=== PATIENT | male | born 1995 | race Caucasian/White ===

== ENCOUNTER 2019-05-22 13:34 | Emergency (ER) | payer SELFPAY ==
[2019-05-22] MEDS ORDERED: DIPH/PERTUSS(ACELL)/TETANUS VAC/PF 0.5 ML SYR (>=10YO) IM ONE (15:07)
[2019-05-22] MEDS ORDERED: LIDOCAINE 1% INJ-PF (10 MG/ML) 30 ML SDV INJ ONE (15:07)
--- NOTE | 2019-05-22 15:10 | ER Document Report ---
ED Medical Screen (RME) - General Chief Complaint: Laceration Stated Complaint: RIGHT HAND LACERACTION Time Seen by Provider: 05/22/19 15:05 TRAVEL OUTSIDE OF THE [place] IN LAST 30 DAYS: No - HPI Notes: 05/22/19 15:08 Patient is a 23-year-old male no past medical history who presents complaining of laceration to right & with a glass 14 hours ago. Patient states that he does not want to affected. He believes that he may need sutures placed. He is able to move his hand without any difficulties. Denies drug allergies. Unknown last tetanus. Denies VILLELA, fever, neck pain, URI, CP, SOB, Abd pain, dysuria, back pain, or rash. I have treated and performed a rapid initial assessment of this patient. A comprehensive ED assessment and evaluation of the patient, analysis of test results and completion of medical decision making process will be conducted by additional ED providers. PHYSICAL EXAMINATION: GENERAL: Well-appearing, well-nourished and in no acute distress. A&Ox4. Answers questions appropriately. Rt hand: several excoriations noted with dried blood. + irregular superficial appearing 1.5cm laceration noted to medial hand. N/V intact distal. No bony tenderness. FROM. Strength 5+/5. - Related Data Allergies/Adverse Reactions: No Known Allergies Allergy (Verified 05/22/19 13:35) Past Medical History - Social History Chew tobacco use (# tins/day): No Frequency of alcohol use: Social Drug Abuse: None Renal/ Medical History: Denies: Hx Peritoneal Dialysis Physical Exam - Vital signs Vitals: Temp Pulse Resp BP Pulse Ox 98.9 F 91 18 147/61 H 95 05/22/19 13:41 05/22/19 13:41 05/22/19 13:41 05/22/19 13:41 05/22/19 13:41 Course - Vital Signs Vital signs: Temp Pulse Resp BP Pulse Ox 98.9 F 91 18 147/61 H 95 05/22/19 13:41 05/22/19 13:41 05/22/19 13:41 05/22/19 13:41 05/22/19 13:41
--- NOTE | 2019-05-22 15:55 | RADIOLOGY REPORT (SQ) ---
EXAM DESCRIPTION: HAND RIGHT 3 VIEWS COMPLETED DATE/TIME: 05/22/2019 3:43 pm REASON FOR STUDY: medial lac s/p hand through glass COMPARISON: None. EXAM PARAMETERS: NUMBER OF VIEWS: Three views. TECHNIQUE: AP, lateral and oblique radiographic images acquired of the right hand. LIMITATIONS: None. FINDINGS: MINERALIZATION: Normal. BONES: No acute fracture or dislocation. No worrisome bone lesions. JOINTS: No effusions. SOFT TISSUES: No soft tissue swelling. No foreign body. OTHER: No other significant finding. IMPRESSION: NEGATIVE STUDY OF THE RIGHT HAND. NO RADIOGRAPHIC EVIDENCE OF ACUTE INJURY. TECHNICAL DOCUMENTATION: JOB ID: [id number] [employer]- All Rights Reserved Reading location - IP/workstation name: [email or web address]
[2019-05-22] MEDS ORDERED: AMOXICILLIN TR/POT CLAVULANATE 500-125 MG TAB PO ONE (16:53)
[2019-05-22] MEDS ORDERED: AMOXICILLIN TRIHYD 250 MG CAPSULE PO ONE (16:53)
[2019-05-22] MEDS ORDERED: IBUPROFEN 800 MG TABLET PO ONE (16:54)
--- NOTE | 2019-05-22 17:57 | ER Document Report ---
HPI - HPI Patient complains to provider of: laceration Time Seen by Provider: 05/22/19 15:05 Pain Level: 3 Context: Patient is a 23-year-old male no past medical history who presents complaining of laceration to right hand with glass 14 hours ago. Patient states that he does not want it to become infected which is why he presents to the ED. He believes that he may need sutures placed. He is able to move his hand without any difficulties. Denies drug allergies. Unknown last tetanus. Denies VILLELA, fever, neck pain, URI, CP, SOB, Abd pain, dysuria, back pain, or rash. - DERM Skin Color: Normal Past Medical History - General Information source: Patient - Social History Smoking Status: Unknown if Ever Smoked Chew tobacco use (# tins/day): No Frequency of alcohol use: Social Drug Abuse: None Family History: Reviewed & Not Pertinent Patient has suicidal ideation: No Patient has homicidal ideation: No Renal/ Medical History: Denies: Hx Peritoneal Dialysis Vertical Provider Document - CONSTITUTIONAL Agree With Documented VS: Yes Notes: GENERAL: Alert, interacts well. No acute distress. HEAD: Normocephalic, atraumatic. EYES: Pupils equal, round, and reactive to light. Extraocular movements intact. ENT: Oral mucosa moist, tongue midline. NECK: Full range of motion. Supple. Trachea midline. LUNGS: Clear to auscultation bilaterally, no wheezes, rales, or rhonchi. No respiratory distress. HEART: Regular rate and rhythm. No murmur ABDOMEN: Soft, non-tender. Non-distended. Bowel sounds present in all 4 quadrants. EXTREMITIES: Moves all 4 extremities spontaneously. No edema, normal radial and dorsalis pedis pulses bilaterally. No cyanosis. BACK: no cervical, thoracic, lumbar midline tenderness. No saddle anesthesia, normal distal neurovascular exam. NEUROLOGICAL: Alert and oriented x3. Normal speech. cranial nerves II through XII grossly intact. PSYCH: Normal affect, normal mood. SKIN: Warm, dry, normal turgor. 1cm laceration noted right medial hand distal to wrist. - INFECTION CONTROL TRAVEL OUTSIDE OF THE [place] IN LAST 30 DAYS: No Course - Re-evaluation Re-evalutation: 05/22/19 17:54 Hand X-Ray 05/22/19 15:07 IMPRESSION: NEGATIVE STUDY OF THE RIGHT HAND. NO RADIOGRAPHIC EVIDENCE OF ACUTE INJURY. Pt hand was cleaned with Betadine, Shur-Clens, surgical brushes. Laceration does not appear to have any bleeding. It does appear to already be healing with no open gaping noted. I discussed with patient risks of infection . 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 Patient is worried that it will get infected. Discussed use of antibiotics and continued follow-up with primary care provider. Patient stable for discharge. - Vital Signs Vital signs: Temp Pulse Resp BP Pulse Ox 98.9 F 91 18 147/61 H 95 05/22/19 13:41 05/22/19 13:41 05/22/19 13:41 05/22/19 13:41 05/22/19 13:41 Discharge - Discharge Clinical Impression: Laceration Condition: Stable Disposition: HOME, SELF-CARE Instructions: Antibiotic Ointment Protection ([facility]), Prophylactic Antibiotic ([facility]), Tetanus Immunization Given ([facility]) Additional Instructions: As we discussed you have been seen and treated in the emergency department after a laceration to your hand. At this point time the wound appears that it is already healing. Due to risk of infection I do not feel as though he needs sutures at this time. Please keep the wound clean and dry. Please take antibiotics as prescribed. Please follow-up with your primary care provider next 24 to 48 hours. Please return to the emergency room for any concerns. Prescriptions: Amox Tr/Potassium Clavulanate [Augmentin [id number] Tablet] 1 tab PO BID 10 Days tablet Forms: Return to Work
[2019-05-22 18:38] VITALS: BP 131/79
== END 2019-05-22 18:38 | disposition home or self-care (01) ==
LOC: ER 13:34
DX: S61.411A Laceration without foreign body of right hand, initial encounter (principal); X58.XXXA Exposure to other specified factors, initial encounter
CPT/HCPCS: 99283; 90471; 73130; 90715; J3490